=== PATIENT | female | born 1950 | race Caucasian/White ===

== ENCOUNTER 2023-06-01 10:32 | Outpatient (CLI) | payer OTHER, SELFPAY ==
--- NOTE | 2023-06-01 11:48 | W.ANESCHARGE ---
Anesthesia Charges Start Date/Time Anesthesia Start Date: 06/01/23 Anesthesia Start Time: 11:50 Stop Date/Time Anesthesia Stop Date: 06/01/23 Anesthesia Stop Time: 12:23 Summary Extremes of Age - Over 70 or under 1: MDA
--- NOTE | 2023-06-01 12:25 | P.ANES_ITS ---
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
== END 2023-06-01 10:33 | disposition home or self-care (01) ==
PROVIDERS: PCP Physician Assistant; Visit Provider Internal Medicine Gastroenterology
DX: Z12.11 Encounter for screening for malignant neoplasm of colon (principal); Q43.8 Other specified congenital malformations of intestine; Z80.0 Family history of malignant neoplasm of digestive organs; Z83.710 Family history of adenomatous and serrated polyps
CPT/HCPCS: 00811; 00812; 45378; 99100; J2704